=== PATIENT | male | born 1980 | race Caucasian/White ===

== ENCOUNTER 2020-12-09 18:53 | Emergency (ER) | payer SELFPAY ==
[~2020-12-09] VITALS: Ht 165.1 cm; Wt 70.5 kg
[2020-12-09 19:01] VITALS: BP 143/90
[2020-12-09] MEDS ORDERED: DEXT354L PO (19:09)
[2020-12-09] MEDS ORDERED: GuaiFENesin/D-METHORPHAN [SUGAR-FREE] 200-20MG/10 ML SYRUP UDCUP PO ONE (19:30)
== END 2020-12-09 21:41 | disposition home or self-care (01) ==
LOC: EMS 18:53
DX: U07.1 COVID-19 (principal); J06.9 Acute upper respiratory infection, unspecified; F41.9 Anxiety disorder, unspecified
CPT/HCPCS: 71045-TC